=== PATIENT | female | born 1975 | race Caucasian/White ===

== ENCOUNTER 2017-01-20 11:42 | Emergency (ER) | payer MEDICAID ==
[~2017-01-20] VITALS: Ht 170.2 cm; Wt 109.3 kg
[2017-01-20 14:04] VITALS: BP 120/72
== END 2017-01-20 14:04 | disposition home or self-care (01) ==
LOC: ED 11:42
DX: S01.112A Laceration without foreign body of left eyelid and periocular area, initial encounter (principal); W50.1XXA Accidental kick by another person, initial encounter; Y93.89 Activity, other specified; Y92.89 Other specified places as the place of occurrence of the external cause; Y99.8 Other external cause status
CPT/HCPCS: J2001

== ENCOUNTER 2018-11-16 10:50 | Emergency (ER) | payer MEDICAID ==
[~2018-11-16] VITALS: Ht 172.7 cm; Wt 116.6 kg
[2018-11-16 10:59] VITALS: Ht 172.7 cm; Wt 116.6 kg
[2018-11-16 13:15] VITALS: BP 138/82
== END 2018-11-16 13:15 | disposition home or self-care (01) ==
LOC: ED 10:50
DX: M72.2 Plantar fascial fibromatosis (principal)
CPT/HCPCS: Q0092

== ENCOUNTER 2020-03-19 09:15 | Emergency (ER) | payer MEDICAID ==
[2020-03-19 10:39] LABS: BASOPHIL % 0.4 % (0-2); PLATELET COUNT 198 x10^3mcL (130-400); RED CELL DISTRIBUTION WIDTH 13.2 % (11.5-14.5)
[2020-03-19 11:37] LABS: CALCIUM 8.8 mg/dL (8.5-10.1); CHLORIDE SERUM 100 mmol/L (98-107); CREATININE SERUM 0.7 mg/dL (0.7-1.3); GFR1 > 60 mL/min; GLUCOSE SERUM 106 mg/dL (74-106); POTASSIUM SERUM 3.9 mmol/L (3.5-5.1); SODIUM SERUM 129 mmol/L (136-145)
[2020-03-19 11:41] LABS: ALBUMIN 3.8 g/dL (3.4-5.0); ALKALINE PHOSPHATASE 93 U/L (46-116); ALT/SGPT 42 U/L (16-63); AST/SGOT 21 U/L (15-37); BILIRUBIN TOTAL 0.5 mg/dL (0.20-1.00); LIPASE 78 IU/L (73-393); TOTAL PROTEIN, SERUM 7.3 g/dL (6.4-8.2)
[2020-03-19 12:04] VITALS: BP 126/70
== END 2020-03-19 12:05 | disposition home or self-care (01) ==
LOC: ED 09:15 → EDSEX 09:15 → ED 12:05
PROVIDERS: Emergency Medicine
DX: K57.30 Diverticulosis of large intestine without perforation or abscess without bleeding (principal)
CPT/HCPCS: J1885; J2405; J7030